=== PATIENT | female | born 1995 | race Caucasian/White ===

== ENCOUNTER 2022-05-19 00:31 | Day surgery (SDC) | payer OTHER, SELFPAY ==
[2022-05-18 11:12] VITALS: BMI 22.8
--- NOTE | 2022-05-18 11:20 | PC.NURSE ---
Report to the Outpatient Waiting Room, entrance under the green pavilion located off [facility], at time 0600 on date 05/19/22. Planned Procedure Time: 0730. Time changes happen often and if your time is changed the preop area will call you the afternoon before. - You and your visitor will be asked to self-screen and do not enter if you have any COVID symptoms. - We encourage only one visitor and NO visitors under age 16 are allowed at this time. Your visitor will receive communication by the phone number that is given day of service. - The patient visitor is requested to social distance or may leave the building when not with patient due to restrictions. - A mask is OPTIONAL within the hospital. Patients may have clear liquids (water, carbonated beverages, clear teas, apple juice) until 3 hours prior to surgery with a maximum of 20 ounces. - No food from midnight until time of surgery Take the following medications with a SIP of water the morning of surgery: NONE Medications to discontinue per physician: N/A Date to take last dose: N/A Please no make-up, nail kazakh, hairspray, perfume, deodorant, or body powder the day of surgery. No jewelry (including any body piercings) or valuables the day of surgery, leave them at home. Please take a shower or bath the night before, or the morning of, surgery with an antibacterial soap. Wear comfortable, loose fitting clothing. - Jewelry must be removed prior to entering the operating room. Rings and piercings that are not removed may be cut off. - The hospital will not accept responsibility for valuables. - Please leave all valuables, including medications, at home the day of surgery. If you are going home after surgery, a licensed regional driver must drive you home. - NO public transportation without another adult. - We recommend that an adult stay with you for 24 hours following discharge. - We also recommend that you do not drive, make important decision, drink alcoholic beverages, or take any drugs that were not prescribed by your health care provider for at least 24 hours after your discharge time. Follow any additional instructions given to you from your surgeon. If you or anyone in your household have experienced Covid symptoms in the past week, please notify your surgeon or the nurse liaison at the phone number below for possible testing. Telephone instructions given to PT - MP FRIED and asked if any additional questions and then verbalized understanding. Patient advised to call surgeon office or pre surgery nurse liaison [phone] if any additional questions.
[2022-05-19] MEDS: ACETAMINOPHEN 500 MG TABLET 1000 MG PO (06:23)
[2022-05-19 06:35] VITALS: BP 108/70; PULSE 62; RESP 16; TEMP 37.4; O2SAT 100
--- NOTE | 2022-05-19 06:37 | P.PNAN_ITS ---
Anes - Initial Pre Proc Eval Procedure: Operation Date: 05/19/22 07:30 Proposed Procedures p Hysteroscopy with Biopsy of Endometrium and/or Polypectomy - Sandhya Patel MD Date/Time: 05/19/22 06:37 Surgeon: Sandhya Patel MD Pre Op Diagnosis: lesion of endometrium Patient Data Age: 27 Gender: F Height: 1.57 m Weight: 58 kg Last Vital Signs Temp 37.4 C 05/19/22 06:35 Pulse 62 05/19/22 06:35 Resp 16 05/19/22 06:35 BP 108/70 05/19/22 06:35 Pulse Ox 100 05/19/22 06:35 O2 Del Method Room Air 05/19/22 06:35 Allergies Allergy/AdvReac Type Severity Reaction Status Date / Time amoxicillin Allergy Unknown Hives Verified 05/19/22 06:16 Home Medications Medication Instructions Recorded Confirmed Type loratadine 10 mg tablet 10 mg PO DAILY PRN Allergy Symptoms 05/18/22 05/18/22 History Patient hx anesthesia problems: none Family hx anesthesia problems: none Results Review: All pre-operative results and documents have been reviewed as part of the pre- operative evaluation. [facility], [facility] Past Medical History Medical History (Updated 05/19/22 @ 06:37 by Basim Middleton MD) Hx of sinus bradycardia Surgical History Surgical History (Updated 05/19/22 @ 06:37 by Basim Middleton MD) H/O adenoidectomy Social History Social History Smoking status: Former smoker Additional smoking assessment comments: FORMER SOMEDAY SMOKER - A COUPLE/MONTH Alcohol intake: current Alcohol use details: 1 EVERY FEW WEEKS Substance use: current Substance use type: marijuana Other substance usage details: GUMMIES ON OCCASION Living arrangements: with family Spiritual care concerns: No Anes - Eval Final PreProcedure Day of Procedure 05/19/22 06:37 Patient weight: normal Heart: regular rate and rhythm Lungs: clear to auscultation Airway: Mallampati scale class 1 Neurological: alert and oriented ASA classification: I Emergent: no Anesthetic plan: proceed Anesthesia type and monitoring: general GIVS and standard monitoring Results Review: All pre-operative results and documents have been reviewed as part of the pre- operative evaluation. Informed Consent: The patient's anesthetic plan and its attendant risks and benefits were discussed with the patient/family/POA. Questions were solicited and answers provided to the satisfaction of the patient/family/POA.
[2022-05-19] MEDS: LACTATED RINGERS 1,000 ML 30 ML IV CONT (07:04)
--- NOTE | 2022-05-19 07:12 | WPDHPUPDATE1 ---
History and Physical Update Update Date/Time: 05/19/22 07:12 History and Physical has been reviewed, including an updated exam of the patient. There are NO changes in the patient's condition. Risks, benefits, and alternatives have been discussed and questions answered. Patient agrees to proceed with procedure.
--- NOTE | 2022-05-19 07:20 | PM.IMHP ---
H&P: HPI History of Present Illness Date/Time: 05/19/22 07:20 Chief Complaint: Endometrial lesion Narrative: this patient is a 27-year-old female with an endometrial lesion. We have agreed to perform hysteroscopy D&C with removal polypectomy. She understands that there are risks with the procedures and surgeries. She understands that injuries may occur that result in hospitalization, more surgery, and severe illness. She understands the risk of hemorrhage and infection. Review of Systems Review of Systems: All systems reviewed & are unremarkable except as noted in HPI and below Constitutional: Constitutional: Denies chills, Denies fatigue, Denies fever(s) and Denies weakness Eyes: Eyes: Denies blurry vision, Denies change in vision, Denies loss of peripheral vision, Denies loss of vision, Denies other visual disturbances and Denies eye pain ENT: Denies vertigo, Denies dizziness, Denies hearing loss, Denies mouth pain, Denies nasal obstruction, Denies neck mass and Denies neck pain Cardiovascular: Cardiovascular: Denies chest pain, Denies diaphoresis, Denies syncope, Denies leg edema and Denies dyspnea Respiratory: Respiratory: Denies chest congestion, Denies cough, Denies hemoptysis, Denies dyspnea and Denies wheezing Gastrointestinal: Gastrointestinal: Denies abdominal pain, Denies constipation, Denies diarrhea, Denies nausea and Denies vomiting Genitourinary: Genitourinary: Denies hematuria, Denies change in libido, Denies nocturia, Denies genital lesions, Denies flank pain and Denies urinary urgency Musculoskeletal: Musculoskeletal: Denies abnormal gait, Denies back pain, Denies myalgias, Denies arthralgias, Denies joint swelling, Denies muscle weakness and Denies neck pain Integumentary/Breasts: Skin/Breast: Denies swelling, Denies breast pain, Denies breast mass, Denies dry skin, Denies nipple discharge, Denies unusual bruising and Denies jaundice Neurologic: Denies Neuro-related abnormal movements, Denies Abnormal speech present, Denies abnormal gait, Denies behavioral changes, Denies confusion, Denies vertigo, Denies dizziness, Denies syncope, Denies loss of vision, Denies memory loss, Denies convulsions and Denies weakness Psychiatric: Psychiatric: Denies abnormal sleep pattern, Denies behavioral changes, Denies change in libido, Denies confusion, Denies depression, Denies anhedonia and Denies memory loss Endocrine: Endocrine: Reports no additional endocrine complaints, Denies change in libido and Denies fatigue Hematologic/Lymphatic: Hematologic/Lymphatic: Reports no additional hematologic/lymphatic complaints Allergic/Immunologic: Allergic/Immunologic: Reports no additional allergic/immunologic complaints and Denies wheezing PMFSH Past Medical History Medical History (Updated 05/19/22 @ 07:21 by Sandhya Patel MD) Hx of sinus bradycardia Surgical History Surgical History (Updated 05/19/22 @ 06:37 by Basim Middleton MD) H/O adenoidectomy Social History Social History Smoking status: Former smoker Additional smoking assessment comments: FORMER SOMEDAY SMOKER - A COUPLE/MONTH Alcohol intake: current Alcohol use details: 1 EVERY FEW WEEKS Substance use: current Substance use type: marijuana Other substance usage details: GUMMIES ON OCCASION Living arrangements: with family Spiritual care concerns: No Meds Home Medications and Allergies Home Medications Medication Instructions Recorded Confirmed Type loratadine 10 mg tablet 10 mg PO DAILY PRN Allergy Symptoms 05/18/22 05/18/22 History Allergies Allergy/AdvReac Type Severity Reaction Status Date / Time amoxicillin Allergy Unknown Hives Verified 05/19/22 06:16 Vital Signs Vital Signs - 24 hr 05/19/22 06:35 Temperature 99.4 F Pulse Rate 62 Respiratory Rate 16 Blood Pressure 108/70 Pulse Oximetry 100 Oxygen Delivery Room Air Exam Const: General: coopera
[2022-05-19] MEDS: LIDOCAINE 1% BUFFERED WITH 8.4% SODIUM BICARB 1 ML SYRINGE 10 ML INFILTRATE (08:00)
[2022-05-19 08:11] VITALS: BP 95/48; PULSE 75; RESP 12; O2SAT 100
--- NOTE | 2022-05-19 08:28 | W.PM.PROC2 ---
Procedure Note - Detailed Date of Procedure 05/19/22 Pre-op Diagnosis lesion of endometrium Post-op Diagnosis Same Procedure Performed Hysteroscopy D&C With polypectomy Surgeon Sandhya Patel MD Anesthesia MAC Indications abnormal uterine bleeding, Endometrial polyp Findings 7 mm polyp in the left cornu of the endometrium. Normal-appearing vulva vagina and cervix. Description of Procedure the patient was taken the operating room. She was prepped and draped in the dorsal lithotomy position after induction of mac anesthesia. A speculum was placed in the vagina. The cervix was grasped with a tenaculum. The cervix was dilated about 1 cm. The hysteroscope was inserted. The intrauterine cavity and endocervix were evaluated. Hysteroscope was withdrawn. A medium-size curette was used to curettage all the surfaces were within the endometrial cavity. the sample was collected on Telfa and sent to pathology. endometrial polyp was removed using scissors. The base was transected and the polyp was removed. The hysteroscope was reinserted and the above findings were noted. Patient tolerated the procedure well. The speculum and tenaculum were removed. She was taken recovery room in stable condition. Sponge lap and needle counts were correct x2. Estimated Blood Loss -2.0 Drains No Packing No Pathology Yes Complications No immediate complications Condition Stable Disposition PACU
[2022-05-19 08:40] VITALS: BP 99/58; PULSE 72; RESP 14; O2SAT 100
[2022-05-19] MEDS: oxyCODONE HCL (*CRX) 5 MG TAB IR PO (08:45)
[2022-05-19 09:10] VITALS: BP 111/61; PULSE 56; RESP 14; O2SAT 100
== END 2022-05-19 09:30 | disposition home or self-care (01) ==
PROVIDERS: Visit Provider Obstetrics & Gynecology
PROC: 0U5B8ZZ Destruction of Endometrium, Via Natural or Artificial Opening Endoscopic (ICD-10-PCS; CPT 58563; principal; 2022-05-19 07:30)
DX: N84.0 Polyp of corpus uteri (principal); F12.90 Cannabis use, unspecified, uncomplicated; Z87.891 Personal history of nicotine dependence
CPT/HCPCS: 58558; 88305; A9270; J0461; J1100; J1885; J2250; J2704; J3010; J7030; J7120

== ENCOUNTER → 2022-08-13 09:07 | Outpatient (CLI) | payer OTHER, SELFPAY ==
--- NOTE | ~2022-08-13 | US_ITS ---
EXAMINATION: US breast LT complete HISTORY: Left breast lump, location not specified TECHNIQUE: Complete left breast ultrasound is performed including all four quadrants and the subareol ar aspect of the breast. FINDINGS: No suspicious cystic or solid mass is identified in the breast. Normal fibroglandular tissu e is seen. IMPRESSION: No specific sonographic correlate is identified for the reported palpable abnormality of concern. Fur ther evaluation at this time should be based on clinical assessment. Continued follow-up physical exa mination is recommended. BI-RADS Category 1: Negative Reviewed, dictated and finalized at location A. FURNITURE CASTER IMPRESSION: No specific sonographic correlate is identified for the reported palpable abnor mality of concern. Further evaluation at this time should be based on clinical assessment. Continued follow-up physical examination is recommended. BI-RADS Category 1: Negative
== END ==
PROVIDERS: PCP Physician Assistant; Visit Provider Advanced Practice Midwife
DX: N63.20 Unspecified lump in the left breast, unspecified quadrant (principal)
CPT/HCPCS: 76641